=== PATIENT | female | born 1990 | race African-American/Black ===

== ENCOUNTER 2018-02-23 22:58 | Emergency (ER) | payer MEDICAID, OTHER ==
[~2018-02-23] VITALS: Ht 157.5 cm; Wt 55.0 kg
[2018-02-24 03:01] LABS: BASOPHILS % 0.4 % (0.0-2.0); EOSINOPHILS % 0.1 % (0.0-5.0); HEMATOCRIT. 38.5 % (36.0-48.0); HEMOGLOBIN. 13.1 g/dL (12.0-16.0); LYMPHOCYTES % 17.4 % (20.0-50.0); MEAN CORPUSCULAR HEMOGLOBIN 33.6 pg (28.0-32.0); MEAN CORPUSCULAR VOLUME 98.4 fL (81.0-99.0); MONOCYTES % 10.8 % (2.0-8.0); NEUTROPHILS % 71.3 % (40.0-76.0); PLATELET 221 x1000/uL (130-400); RED BLOOD CELL COUNT 3.91 mill/uL (4.2-5.4); RED CELL DISTRIBUTION WIDTH 13.6 % (11.6-14.6)
[2018-02-24 03:05] LABS: CHLORIDE 101 mEq/L (98-107)
[2018-02-24 03:06] LABS: PROTHROMBIN TIME 10.4 sec (9.1-11.1)
[2018-02-24] MEDS ORDERED: ACETAMINOPHEN 325MG TABLET PO ONE (03:15)
[2018-02-24] MEDS ORDERED: POTASSIUM CHLORIDE 20MEQ TABLET SR PO ONE (03:15)
[2018-02-24 04:20] LABS: CLARITY URINE CLOUDY (CLEAR); COLOR URINE DARK YELLOW (YELLOW); KETONES URINE 1+ (NEGATIVE); LEUKOCYTE ESTERASE URINE 1+ (NEGATIVE); NITRITE URINE NEGATIVE (NEGATIVE); OCCULT BLOOD URINE NEGATIVE (NEGATIVE); PH URINE 5.5 (4.5-8.0); PROTEIN URINE 2+ (NEGATIVE); SPECIFIC GRAVITY URINE 1.023 (1.005-1.030)
[2018-02-24 04:35] LABS: *AMPHETAMINES SCREEN URINE NEGATIVE (NEGATIVE); *BARBITURATES SCREEN URINE NEGATIVE (NEGATIVE); *BENZODIAZEPINES SCREEN URINE NEGATIVE (NEGATIVE); *COCAINE SCREEN URINE NEGATIVE (NEGATIVE); METHADONE URINE SCREEN NEGATIVE (NEGATIVE)
[2018-02-24 04:36] LABS: OPIATES URINE SCREEN NEGATIVE (NEGATIVE); PHENCYCLIDINE URINE SCREEN NEGATIVE (NEGATIVE)
[2018-02-24 04:47] LABS: CANNABINOID URINE SCREEN PRESUMTIVE POSITIVE (NEGATIVE)
[2018-02-24 04:55] VITALS: BP 147/97
== END 2018-02-24 04:58 | disposition home or self-care (01) ==
LOC: ER 22:58
DX: N39.0 Urinary tract infection, site not specified (principal); E87.6 Hypokalemia; F17.200 Nicotine dependence, unspecified, uncomplicated; F12.10 Cannabis abuse, uncomplicated; F15.10 Other stimulant abuse, uncomplicated; E78.00 Pure hypercholesterolemia, unspecified
CPT/HCPCS: 36415; 80305; 81025; 99283

== ENCOUNTER 2018-04-18 20:51 | Emergency (ER) | payer MEDICAID, OTHER ==
[~2018-04-18] VITALS: Ht 167.6 cm; Wt 55.0 kg
[2018-04-18] MEDS ORDERED: IBUPROFEN 600MG TABLET PO ONE (23:15)
[2018-04-18] MEDS ORDERED: BACITRACIN ZINC OINT UDPKT TOP ONE (23:30)
[2018-04-19] MEDS ORDERED: HYDROCODONE/ACETAMINOPHEN 5/325MG TABLET PO ONE (04:30)
[2018-04-19 04:58] VITALS: BP 119/79
== END 2018-04-19 04:59 | disposition home or self-care (01) ==
LOC: ER 21:12
DX: S82.51XA Displaced fracture of medial malleolus of right tibia, initial encounter for closed fracture (principal); S82.401A Unspecified fracture of shaft of right fibula, initial encounter for closed fracture; S61.412A Laceration without foreign body of left hand, initial encounter; D64.9 Anemia, unspecified; F14.10 Cocaine abuse, uncomplicated; F15.10 Other stimulant abuse, uncomplicated; F12.10 Cannabis abuse, uncomplicated; F17.200 Nicotine dependence, unspecified, uncomplicated; W18.39XA Other fall on same level, initial encounter; Y93.89 Activity, other specified; Y92.89 Other specified places as the place of occurrence of the external cause; Y99.8 Other external cause status
CPT/HCPCS: 12001; 29505; 73562; 73590; 99284; Z7610